=== PATIENT | male | born 1985 | race Caucasian/White ===

== ENCOUNTER → 2025-04-19 09:11 | Outpatient (CLI) | payer OTHER, SELFPAY ==
--- NOTE | 2025-04-19 09:13 | DI.MRI.S_ITS ---
PROCEDURE: MR ANKLE LT WO CON INDICATIONS: lt ankle pain/shoulder pain TECHNIQUE: Noncontrast sagittal T1 spin echo and T2 fast spin echo with fat saturation, axial proton density fast spin echo and T2 fast spin echo with fat saturation, coronal T1 spin echo and T2 fast spin echo with fat saturation through the ankle/hindfoot. COMPARISON: None. FINDINGS: Image quality: Excellent Tendons: Mild tenosynovitis of the posterior tibialis, and the flexor digitorum longus. Mild tenosynovitis of the flexor hallucis longus, at the master knot of Larry. The extensor tendons are unremarkable. The peroneal tendons are unremarkable. The distal Achilles tendon is unremarkable. Ligaments: The anterior and posterior tibiofibular ligaments are intact. Mild sprain of the anterior talofibular ligament. The posterior talofibular ligament is intact. The calcaneofibular ligament is intact. The deep portion of the deltoid ligament is unremarkable. Sinus tarsi: No fibrosis Plantar fascia: Mild thickening of the central cord, raising concern for plantar fasciitis. Muscles: Normal in signal Bones: Normal in signal. There is a subcentimeter ganglion cyst plantar to the medial cuneiform (7:6). No significant tibiotalar effusion. IMPRESSION: 1. Mild tenosynovitis of the flexor tendons. 2. Mild sprain of the anterior talofibular ligament. 3. Mild plantar fasciitis. 4. Sub cm ganglion cyst plantar to the medial cuneiform Dictated by: Gosia Baxter M.D. on 04/20/2025 at 9:56 Approved by: Gosia Baxter M.D. on 04/20/2025 at 10:03
== END ==
PROVIDERS: Referring Provider Student in an Organized Health Care Education/Training Program; Visit Provider Student in an Organized Health Care Education/Training Program
DX: S93.492A Sprain of other ligament of left ankle, initial encounter (principal); M65.972 Unspecified synovitis and tenosynovitis, left ankle and foot; M72.2 Plantar fascial fibromatosis; M67.472 Ganglion, left ankle and foot; M25.572 Pain in left ankle and joints of left foot
CPT/HCPCS: 73721